=== PATIENT | female | born 1955 | race Caucasian/White ===

== ENCOUNTER 2016-06-03 08:09 | Emergency (ER) | payer MEDICAID ==
[2015-12-18 09:47] VITALS: BMI 31.8
[~2016-06-03 08:09] MED LIST: ADVAIR 250/501 DISK INH; AMBIEN10 MG PO; ATIVAN1 MG PO; BAYER CHEWABLE81 MG PO; CELEXA40 MG PO; CIPRO500 MG PO; CLEOCIN HCL300 MG PO; DOXYCYCLINE HY100 M2 PO; LEVAQUIN500 MG PO; LEVAQUIN750 MG PO; LISINOPRIL PO; LISINOPRIL10 MG PO; LITHIUM CARBON300 MG PO; MEDROL DOSE PACK4 MG PO; MOBIC PO; NORCO 10/325 TA1 TA1 PO; NYSTATIN ORAL SU5 ML PO; ORAPRED ODT10 MG/TAB PO; PERCOCET PO; PLAVIX75 MG PO; PREVACID30 MG PO; SINEQUAN100 MG PO; STERAPRED DS 1210 MG PO; XANAX1 MG PO; [UNRECOGNIZED DRUG - OTHER] PO
== END 2016-06-03 11:10 | disposition home or self-care (01) ==
LOC: D.ER 08:09
DX: J44.1 Chronic obstructive pulmonary disease with (acute) exacerbation (principal); F17.200 Nicotine dependence, unspecified, uncomplicated

== ENCOUNTER 2016-12-14 05:52 | Emergency (ER) | payer MEDICAID ==
[2015-12-18 09:47] VITALS: BMI 31.8
[2016-12-14 07:00] LABS: BASOPHILS 0.7 % (0-2); EOSINOPHILS 2.4 % (0-7); HEMATOCRIT 37.3 % (36.0-48.0); HEMOGLOBIN 12.1 g/dL (12-16); IMMATURE GRANULOCYTES 0.3 % (0-5); LYMPHOCYTES 35.6 % (15-50); MCH 32.5 pg (26.0-34.0); MCHC 32.4 g/dL (31.0-37.0); MCV 100.3 fL (80.0-100.0); MEAN PLATELET VOLUME 10.3 fL (7.4-10.4); MONOCYTES 12.7 % (2-11); NEUTROPHILS 48.3 % (40-80); RBC 3.72 10x6/uL (4.00-5.40); RDW 13.2 % (11.5-14.5); WBC 7.5 10x3/uL (4.8-10.8)
[2016-12-14 07:09] LABS: PLATELET COUNT 184 10x3/uL (130-400)
[2016-12-14 07:18] LABS: ALBUMIN 3.2 g/dL (3.4-5.0); ALKALINE PHOSPHATASE 150 U/L (46-116); ALT (SGPT) 36 U/L (10-68); CALC OSMOLALITY 279 mosm/kg (275-300); CARBON DIOXIDE 25.3 mmol/L (21.0-32.0); CHLORIDE - SERUM 105 mmol/L (98-107); CREATININE - SERUM 0.9 mg/dL (0.6-1.3); GLUCOSE 95 mg/dL (74-106); POTASSIUM - SERUM 4.2 mmol/L (3.5-5.1); PROTEIN - SERUM 7.2 g/dL (6.4-8.2); SODIUM 139 mmol/L (136-145); UREA NITROGEN 19 mg/dL (7-18); eGFR NON AFRICAN AMERICAN 68 mL/min (90-120)
[2016-12-14 07:29] LABS: CHOL - HDL RATIO 5.2 ratio (2.3-4.1); CHOLESTEROL, TOTAL 181 mg/dL (0-200); CKMB 1.8 U/L (0.0-3.6); CREATINE KINASE 156 UL (21-215); HDL CHOLESTEROL 35 mg/dL (32-96); LDL CHOLESTEROL 121 mg/dL (0-100); LDL-HDL RATIO 3.5 ratio (1.5-3.5); TRIGLYCERIDE 126 mg/dL (30-200); TROPONIN-I < 0.017 ng/mL (0.000-0.060)
== END 2016-12-14 07:42 | disposition home or self-care (01) ==
LOC: D.ER 05:52
PROVIDERS: Emergency Medicine
DX: R07.9 Chest pain, unspecified (principal); J44.9 Chronic obstructive pulmonary disease, unspecified; F41.8 Other specified anxiety disorders

== ENCOUNTER 2016-12-22 08:29 | Emergency (ER) | payer MEDICAID ==
[2015-12-18 09:47] VITALS: BMI 31.8
[2016-12-22 09:33] LABS: HEMATOCRIT 38.6 % (36.0-48.0); HEMOGLOBIN 12.8 g/dL (12-16); MCH 32.5 pg (26.0-34.0); MCHC 33.2 g/dL (31.0-37.0); MEAN PLATELET VOLUME 10.1 fL (7.4-10.4); NEUTROPHILS 59.8 % (40-80); PLATELET COUNT 204 10x3/uL (130-400); RBC 3.94 10x6/uL (4.00-5.40); RDW 13.1 % (11.5-14.5); UDS - AMPHET NEGATIVE QUAL (NEGATIVE); UDS - BARB NEGATIVE QUAL (NEGATIVE); UDS - BENZO POSITIVE QUAL (NEGATIVE); UDS - COCAINE NEGATIVE QUAL (NEGATIVE); UDS - METH NEGATIVE QUAL (NEGATIVE); UDS - OPIATE NEGATIVE QUAL (NEGATIVE); UDS - PCP NEGATIVE QUAL (NEGATIVE); UDS - THC NEGATIVE QUAL (NEGATIVE); WBC 7.6 10x3/uL (4.8-10.8)
[2016-12-22 09:47] LABS: APPEARANCE TURBID (CLEAR); BACTERIA MANY /hpf (NONE SEEN); BILIRUBIN NEGATIVE (NEGATIVE); COLOR DK YELLOW (YELLOW); EPITHELIAL CELLS 0-5 /hpf (0-5); GLUCOSE NEGATIVE (NEGATIVE); KETONE NEGATIVE (NEGATIVE); LEUKOCYTE ESTERASE 2+ (NEGATIVE); NITRITE POSITIVE (NEGATIVE); PROTEIN NEGATIVE (NEGATIVE); RED CELLS - URINE 0-5 /hpf (0-5); SPECIFIC GRAVITY 1.015 (1.005-1.020); WHITE CELLS - URINE 25-50 /hpf (0-5)
[2016-12-22 10:04] LABS: ALBUMIN 3.6 g/dL (3.4-5.0); ALKALINE PHOSPHATASE 150 U/L (46-116); ALT (SGPT) 32 U/L (10-68); CALC OSMOLALITY 278 mosm/kg (275-300); CALCIUM 9.1 mg/dL (8.5-10.1); CARBON DIOXIDE 26.6 mmol/L (21.0-32.0); CHLORIDE - SERUM 102 mmol/L (98-107); CREATININE - SERUM 0.7 mg/dL (0.6-1.3); GLUCOSE 88 mg/dL (74-106); POTASSIUM - SERUM 4.5 mmol/L (3.5-5.1); PROTEIN - SERUM 7.3 g/dL (6.4-8.2); SODIUM 141 mmol/L (136-145); UREA NITROGEN 11 mg/dL (7-18); eGFR NON AFRICAN AMERICAN 90 mL/min (90-120)
== END 2016-12-22 11:20 | disposition home or self-care (01) ==
LOC: D.ER 08:29
PROVIDERS: Emergency Medicine
DX: F23 Brief psychotic disorder (principal); F41.9 Anxiety disorder, unspecified; F32.9 Major depressive disorder, single episode, unspecified; M54.5 Low back pain; J44.9 Chronic obstructive pulmonary disease, unspecified; F17.200 Nicotine dependence, unspecified, uncomplicated; R68.83 Chills (without fever); R44.2 Other hallucinations

== ENCOUNTER 2017-11-21 10:17 | Observation (INO) | payer MEDICAID ==
[~2017-11-21] VITALS: Ht 160 cm; Wt 75.0 kg
--- NOTE | ~2017-11-21 | HEMODYNAMI ---
PATIENT:TASHA LAYNE MEDICAL RECORD: [id number] : 57 [facility] [id number] ADMISSION DATE: 11/21/17 Generatedon:11/21/201715:28 Patient name: TASHA LAYNE Patient #: [id number] SSN: : 1955 Date of study: 11/21/2017 Page: Of Hemodynamic Procedure Report Patient Data Patient Demographics Procedure consent was obtained First Name: TASHA Gender: Female Last Name: XI : 1955 [facility] Initial: IAN Age: 62 year(s) Patient #: [id number] Race: Unknown Additional ID: [id number] Contact details [address]: [address] [place] [address] State: [place] City: [place] Zip code: [address] Past Medical History Allergies Allergen Reaction Date Comments Reported Cephalosporins 11/21/2017 Admission Admission Data Admission Date: 11/21/2017 Admission Time: 13:12 Room #: E14 Height (in.): 63 BSA: 1.78 (m2) Height (cm.): 160.02 BMI: 29.23 (kg/m2) Weight (lbs.): 165 Weight (kg.): 74.84 Procedure Procedure Types Cath Procedure Peripheral Cath Diagnostic Procedure Cath Peripheral Abd/Extremity Extremities Right Upper Ext. Arteriogram Procedure Description Procedure Date Procedure Date: 11/21/2017 Procedure Start Time: 15:05 Procedure Staff Name Function Antonio Hogan MD Performing Physician Renata Sanchez RT Depositing Machine Operator Robyn Kennedy RN Nurse Bryant Viera RT Scrub Procedure Data Cath Procedure Fluoroscopy Diagnostic fluoroscopy Total fluoroscopy Time: 0.9 time: 0.9 min min Diagnostic fluoroscopy Total fluoroscopy dose: 219 dose: 219 mGy mGy Contrast Material Contrast Material Type Amount (ml) Isovue 300 55 Diagnostic catheters Device Type Used For End Catheter Placement Merit ULTRA BOLUS FLUSH 5Fr 90CM catheter ([id number]) Procedure Medications Medication Administration Route Dosage Lidocaine 1% added to field 20 Heparin Flush Bag added to field 3 bags (1000units/500ml NS) Hemodynamics Rest BSA: 1.78 (m2) O2 Consumption: Estimated: 172.42 (ml/min) O2 Consumption indexed : Estimated:96.87 (ml/min/m) Heart Rate: 76 (bpm) Snapshots Pre Cath Intra NCS Post Cath Vital Signs Time Heart Resp SPO2 etCO2 NIBP (mmHg) Rhythm Pain Sedation Rate (ipm) (%) (mmHg) Status Level (bpm) 14:52:05 72 7 96 0 Measuring NSR 0 (11) 10(A) , No pain 14:52:34 73 19 96 1.4 135/86(113) NSR 0 (11) 10(A) , No pain 14:56:54 86 37 97 0.7 151/76(112) NSR 0 (11) 10(A) , No pain 15:01:10 69 20 0 129/81(101) NSR 0 (11) 10(A) , No pain 15:05:22 69 13 87 0 125/81(104) NSR 0 (11) 10(A) , No pain 15:10:17 74 11 99 0 147/94(102) NSR 0 (11) 10(A) , No pain 15:15:16 73 18 100 0 Measuring NSR 0 (11) 10(A) , No pain 15:15:32 72 15 0.7 146/86(116) NSR 0 (11) 10(A) , No pain 15:20:31 70 11 0 Measuring NSR 0 (11) 10(A) , No pain 15:20:49 69 14 0 122/85(103) NSR 0 (11) 10(A) , No pain 15:24:55 71 14 99 0.7 139/97(113) NSR 0 (11) 10(A) , No pain Medications Time Medication Route Dose Verified Delivered Reason Notes Effec tiveness by by 14:37:59 Lidocaine 1% added 20ml Antonio Alvarez used for to vial Hogan Hogan procedure field MD INGRAM 14:38:20 Heparin Flush added 3 Antonio Alvarez used for Bag to bags Hogan Hogan procedure (1000units/500ml field MD INGRAM NS) Procedure Log Time Note 14:15:15 Patient Height : 63 inches 14:15:21 Patient Weight : 165 lbs 14:16:02 Use device set IR Diagnostic 14:17:07 DOC .035 wire ([id number]) opened to sterile field. 14:17:08 SHEATH 5FR [place] (TQO572) opened to sterile field. 14:17:09 PERCUTANEOUS ENTRY 19GA needle opened to sterile field. 14:17:10 TUBING Contrast Injection High Pressure ([id number]) opened to sterile field. 14:17:11 Tegaderm 4 x 4 (1626W) opened to sterile field. 14:17:12 Sterile Angiographic Pack opened to sterile field. 14:17:13 Bag Decanter (2001S) opened to sterile field. 14:17:14 ACIST Manifold (23597) opened to sterile field. 14:17:15 ACIST Hand Control (53668) opened to sterile field. 14:17:16 ACIST Syringe (78331) opened to sterile field. 14:18:28 - 14:32:10 Time tracking: Call back (After hours or weekends) 14:32:43 Plan of Care:Hemodynamics will remain stable., Cardiac rhythm will remain stable., Comfort level will be maintained., Respiratory function will remain adequate., Patient/ family verbilizes understanding of procedure., Procedure tolerated without complication., Recovers from procedure without complications.. 14:32:51 Patient received from ED to IR Alert and oriented. Tansferred to table in Supine position. 14:32:55 Signed procedure consent form obtained from patient. 14:33:04 H&P Date Dictated: 11/21/2017 Emergent; H&P N/A. 14:33:07 Pre-procedure instructions explained to patient. 14:33:08 Pre-op teaching completed and patient verbalized understanding. 14:33:10 Family in waiting room. 14:33:18 Patient NPO since Lunch. 14:34:53 Patient allergic to Cephalosporins 14:35:01 Is the patient allergic to Iodine/contrast media? No. 14:35:05 Is patient on blood thinner?Yes 14:35:11 ACC The patient was administered the following blood thiners within the last 24 hours: ACCPlavix 14:35:39 Patient diabetic? No. 14:35:43 - 14:35:44 ----Pre-sedation anethsthesia assessment.---- 14:36:47 Previous problem with sedation/anesthesia? Yes ? 14:36:51 Snore? Yes 14:36:52 Sleep apnea? No 14:36:56 Deviated septum? No 14:36:59 Opens mouth fully? Yes 14:37:02 Sticks out tongue? Yes 14:37:18 Airway obstruction? Yes copd 14:37:22 Dentures? No ? 14:37:25 - 14:37:31 Pre procedure: right dorsailis pedis pulse Doppler 14:37:35 Pre procedure: left dorsailis pedis pulse Doppler 14:37:43 Pre procedure: right posterior tibial pulse Doppler 14:37:47 Pre procedure: left posterior tibial pulse Doppler 14:37:59 Lidocaine 1% 20ml vial added to field was administered by Antonio Hogan MD; used for procedure; 14:38:01 Pre procedure: right radial pulse Doppler 14:38:20 Heparin Flush Bag (1000units/500ml NS) 3 bags added to field was administered by Antonio Hogan MD; used for procedure; 14:38:21 IV patent on arrival in left forearm with D5/.45%NaCl at [facility]. 14:38:28 Right groin area was prepped with chlora-prep and draped in sterile fashion 14:50:15 ECG and BP/O2 sat monitors applied to patient. 14:50:16 Vital chart was started 14:50:18 Baseline sample Acquired. 14:50:26 Baseline sample Acquired. 14:50:29 Full Disclosure recording started 14:50:30 - 15:04:06 Physician arrived 15:05:21 --------ALL STOP TIME OUT------ 15::21 Final Timeout: patient, procedure, and site verified with staff and physician. All members of the team are in agreement. 15:05:32 Procedure started. 15:05:37 Local anesthetic to right femoral artery with Lidocaine 1% by Antonio Hogan MD.INITIAL ACCESS ONLY 15:09:52 A Yoovi ULTRA BOLUS FLUSH 5Fr 90CM catheter ([id number]) was advanced over the wire and used for . 15:20:29 ANGIOSEAL-VIP PLUS 6 FR opened to sterile field. 15:25:06 Procedure ended.(Physican Out) 15:26:17 Fluoroscopy time 00.90 minutes. 15:26:22 Fluoroscopy dose: 219 mGy 15:26:22 Flurop Dose total: 219 15:26:32 Contrast amount:Isovue 300 55ml. 15:26:35 Procedure and supply charges have been captured, reviewed, submitted an d are correct. 15:27:36 Report given to Med/Surg. 15:28:01 Vital chart was stopped Device Usage Item Name Manufacture Quantity Catalog Number Hospital Part Current [facility] Lot# / Charge Number Stock Stock Serial# Code DOC .035 wire [employer] 1 [id number] 5 ([id number]) SHEATH 5FR Terumo 1 [id number] [id number] [id number] [id number] 40 [place] ([id number]) PERCUTANEOUS [employer] 1 [id number] 798901 611581 5 [id number] ENTRY 19GA needle TUBING Merit 1 [id number] 504114 506822 167567 5 Contrast Medical Injection High Pressure ([id number]) Tegaderm 4 x 4 3M 1 1626W [id number] 890447 663247 5 (1626W) Sterile Cardinal 1 [id number] 253743 762129 5 Angiographic Health Pack Bag Decanter Microtek 1 2001S 148183 43088 610888 5 (2001S) Medical Inc. ACIST Manifold Acist 1 46385 342092 916335 867376 5 (97422) Medical Systems Inc ACIST Hand Acist 1 00171 277289 720987 891906 5 Control Medical (87504) Systems Inc ACIST Syringe Acist 1 42833 698678 845819 400549 20 (45804) Medical Systems Inc Merit ULTRA Merit 1 [id number] 971977 894657 5 BOLUS FLUSH Medical 5Fr 90CM catheter ([id number]) ANGIOSEAL-[facility]IP [facility] Simone 1 024409 007496 727152 5 [id number] PLUS 6 FR Signature Audit [place] Stage Time Signature Unsigned Intra-Procedure 11/21/2017 Renata Sanchez 3:27:59 PM RT(R) [id number] [place] [address]
[2017-11-21 11:41] LABS: BASOPHILS 0.6 % (0-2); EOSINOPHILS 2.8 % (0-7); HEMATOCRIT 42.9 % (36.0-48.0); HEMOGLOBIN 14.2 g/dL (12-16); IMMATURE GRANULOCYTES 0.2 % (0-5); LYMPHOCYTES 23.9 % (15-50); MCH 32.6 pg (26.0-34.0); MCHC 33.1 g/dL (31.0-37.0); MCV 98.6 fL (80.0-100.0); MEAN PLATELET VOLUME 11.4 fL (7.4-10.4); MONOCYTES 8.6 % (2-11); NEUTROPHILS 63.9 % (40-80); PLATELET COUNT 177 10x3/uL (130-400); RBC 4.35 10x6/uL (4.00-5.40); RDW 12.6 % (11.5-14.5); WBC 9.9 10x3/uL (4.8-10.8)
[2017-11-21 11:58] LABS: ALBUMIN 3.4 g/dL (3.4-5.0); ALKALINE PHOSPHATASE 128 U/L (46-116); ALT (SGPT) 73 U/L (10-68); BILIRUBIN - TOTAL 0.39 mg/dL (0.2-1.3); CALC OSMOLALITY 279 mosm/kg (275-300); CALCIUM 9.3 mg/dL (8.5-10.1); CARBON DIOXIDE 26.1 mmol/L (21.0-32.0); CHLORIDE - SERUM 106 mmol/L (98-107); CREATININE - SERUM 0.8 mg/dL (0.6-1.3); GLUCOSE 104 mg/dL (74-106); POTASSIUM - SERUM 4.1 mmol/L (3.5-5.1); SODIUM 140 mmol/L (136-145); UREA NITROGEN 15 mg/dL (7-18); eGFR NON AFRICAN AMERICAN 77 mL/min (90-120)
[2017-11-21 13:17] LABS: APTT 29.9 SECONDS (22.8-39.4); INR 1.04 (0.85-1.17); PROTIME 13.2 SECONDS (11.6-15.0)
[2017-11-21 14:15] VITALS: BP 124/93
[2017-11-21] MEDS ORDERED: CELEXA40 MG PO (16:15)
[2017-11-21] MEDS ORDERED: XANAX1 MG PO (16:22)
[2017-11-21 17:26] VITALS: BP 117/74; BMI 29.2
[2017-11-21 18:34] VITALS: Ht 160 cm; Wt 75.0 kg
[2017-11-21 19:06] LABS: HEMATOCRIT 38.8 % (36.0-48.0); HEMOGLOBIN 12.8 g/dL (12-16); RBC 3.88 10x6/uL (4.00-5.40); RDW 12.9 % (11.5-14.5); WBC 10.4 10x3/uL (4.8-10.8)
[2017-11-21 19:22] LABS: APTT 31.1 SECONDS (22.8-39.4); INR 1.05 (0.85-1.17); PROTIME 13.3 SECONDS (11.6-15.0)
[2017-11-21 22:41] VITALS: BP 110/80
[2017-11-22 01:53] VITALS: BP 121/76
[2017-11-22 05:06] LABS: BASOPHILS 0.5 % (0-2); EOSINOPHILS 2.9 % (0-7); HEMATOCRIT 39.9 % (36.0-48.0); HEMOGLOBIN 12.8 g/dL (12-16); IMMATURE GRANULOCYTES 0.2 % (0-5); MCH 32.1 pg (26.0-34.0); MCHC 32.1 g/dL (31.0-37.0); MEAN PLATELET VOLUME 11.3 fL (7.4-10.4); MONOCYTES 8.7 % (2-11); NEUTROPHILS 51.7 % (40-80); PLATELET COUNT 170 10x3/uL (130-400); RBC 3.99 10x6/uL (4.00-5.40); RDW 12.9 % (11.5-14.5); WBC 11.1 10x3/uL (4.8-10.8)
[2017-11-22 05:22] LABS: ANION GAP 11.8 mmol/L (8-16); CALCIUM 8.6 mg/dL (8.5-10.1); CARBON DIOXIDE 24.4 mmol/L (21.0-32.0); CREATININE - SERUM 0.9 mg/dL (0.6-1.3); POTASSIUM - SERUM 4.2 mmol/L (3.5-5.1)
[2017-11-22 06:25] VITALS: BP 147/88
[2017-11-22 09:01] VITALS: BP 144/70
[2017-11-22 13:32] VITALS: BP 155/115
[2017-11-22 18:34] LABS: PLT FUNCT.(P2Y12) PLAVIX 144 PRU (194-418)
[2017-11-22 20:30] VITALS: BP 196/100
[2017-11-23 06:54] LABS: ANION GAP 13.5 mmol/L (8-16); CALCIUM 9.2 mg/dL (8.5-10.1); CARBON DIOXIDE 23.6 mmol/L (21.0-32.0); CREATININE - SERUM 0.9 mg/dL (0.6-1.3); POTASSIUM - SERUM 4.1 mmol/L (3.5-5.1)
[2017-11-23 07:00] LABS: BASOPHILS 0.5 % (0-2); EOSINOPHILS 1.5 % (0-7); HEMATOCRIT 38.6 % (36.0-48.0); HEMOGLOBIN 12.7 g/dL (12-16); IMMATURE GRANULOCYTES 0.2 % (0-5); LYMPHOCYTES 24.1 % (15-50); MCH 32.2 pg (26.0-34.0); MCHC 32.9 g/dL (31.0-37.0); MEAN PLATELET VOLUME 11.5 fL (7.4-10.4); NEUTROPHILS 63.7 % (40-80); RBC 3.95 10x6/uL (4.00-5.40); RDW 12.6 % (11.5-14.5)
[2017-11-23 07:29] LABS: MCV 97.7 fL (80.0-100.0); PLATELET COUNT 227 10x3/uL (130-400); WBC 17.7 10x3/uL (4.8-10.8)
== END 2017-11-23 08:39 | disposition left against medical advice (07) ==
LOC: D.ER 10:17 → D.M2 13:12 → D.EDHOLD 13:12 → OBSVTIME 13:15 → D.M2 16:08
PROVIDERS: Emergency Medicine; Internal Medicine Nephrology
DX: I73.9 Peripheral vascular disease, unspecified (principal); F17.203 Nicotine dependence unspecified, with withdrawal; I10 Essential (primary) hypertension; J44.9 Chronic obstructive pulmonary disease, unspecified; F31.9 Bipolar disorder, unspecified; F41.9 Anxiety disorder, unspecified

== ENCOUNTER 2017-11-29 11:26 | Emergency (ER) | payer MEDICAID ==
[~2017-11-29] VITALS: Ht 160 cm; Wt 72.7 kg
[2017-11-29 11:33] VITALS: Ht 160 cm; Wt 72.7 kg
[2017-11-29 13:11] LABS: ALBUMIN 3.6 g/dL (3.4-5.0); ALKALINE PHOSPHATASE 102 U/L (46-116); ALT (SGPT) 70 U/L (10-68); BILIRUBIN - TOTAL 0.85 mg/dL (0.2-1.3); CALC OSMOLALITY 275 mosm/kg (275-300); CALCIUM 8.7 mg/dL (8.5-10.1); CARBON DIOXIDE 25.9 mmol/L (21.0-32.0); CHLORIDE - SERUM 101 mmol/L (98-107); CREATININE - SERUM 0.9 mg/dL (0.6-1.3); GLUCOSE 113 mg/dL (74-106); POTASSIUM - SERUM 3.8 mmol/L (3.5-5.1); SODIUM 136 mmol/L (136-145); UREA NITROGEN 20 mg/dL (7-18); eGFR NON AFRICAN AMERICAN 67 mL/min (90-120)
[2017-11-29 13:14] LABS: BASOPHILS 0.6 % (0-2); EOSINOPHILS 1.4 % (0-7); HEMATOCRIT 34.5 % (36.0-48.0); HEMOGLOBIN 11.3 g/dL (12-16); IMMATURE GRANULOCYTES 0.2 % (0-5); MCH 32.5 pg (26.0-34.0); MCHC 32.8 g/dL (31.0-37.0); MCV 99.1 fL (80.0-100.0); MEAN PLATELET VOLUME 10.7 fL (7.4-10.4); MONOCYTES 10.5 % (2-11); NEUTROPHILS 70.3 % (40-80); PLATELET COUNT 274 10x3/uL (130-400); RBC 3.48 10x6/uL (4.00-5.40); RDW 13.4 % (11.5-14.5); WBC 16.2 10x3/uL (4.8-10.8)
[2017-11-29 13:30] LABS: CREATINE KINASE 387 UL (21-215); PRO BNP 306 pg/mL (0-125)
[2017-11-29 13:32] LABS: CKMB 3.8 U/L (0.0-3.6)
[2017-11-29 14:42] VITALS: BP 142/87
== END 2017-11-29 14:51 | disposition home or self-care (01) ==
LOC: D.ER 11:26
PROVIDERS: Family Medicine
DX: I70.298 Other atherosclerosis of native arteries of extremities, other extremity (principal); Z98.890 Other specified postprocedural states; I10 Essential (primary) hypertension; J44.9 Chronic obstructive pulmonary disease, unspecified

== ENCOUNTER 2017-12-03 19:53 | Emergency (ER) | payer MEDICAID ==
[~2017-12-03] VITALS: Ht 160 cm; Wt 72.7 kg
[2017-12-03 20:00] VITALS: BP 139/83; Ht 160 cm; Wt 72.7 kg
== END 2017-12-03 22:18 | disposition left against medical advice (07) ==
LOC: D.ER 19:53
DX: M79.641 Pain in right hand (principal)

== ENCOUNTER 2018-05-02 00:10 | Emergency (ER) | payer MEDICAID ==
[~2018-05-02] VITALS: Ht 160 cm; Wt 65.0 kg
[2018-05-02 00:14] VITALS: Ht 160 cm; Wt 65.0 kg
[2018-05-02 02:10] LABS: BASOPHILS 0.7 % (0-2); HEMATOCRIT 36.5 % (36.0-48.0); HEMOGLOBIN 12.2 g/dL (12-16); IMMATURE GRANULOCYTES 0.1 % (0-5); LYMPHOCYTES 32.8 % (15-50); MCH 32.8 pg (26.0-34.0); MCHC 33.4 g/dL (31.0-37.0); MCV 98.1 fL (80.0-100.0); MEAN PLATELET VOLUME 11.1 fL (7.4-10.4); MONOCYTES 12.1 % (2-11); NEUTROPHILS 51.3 % (40-80); RBC 3.72 10x6/uL (4.00-5.40); WBC 9.2 10x3/uL (4.8-10.8)
[2018-05-02 02:12] LABS: PLATELET COUNT 148 10x3/uL (130-400)
[2018-05-02 02:30] LABS: ALBUMIN 3.4 g/dL (3.4-5.0); ALKALINE PHOSPHATASE 129 U/L (46-116); ALT (SGPT) 81 U/L (10-68); BILIRUBIN - TOTAL 1.14 mg/dL (0.2-1.3); CALC OSMOLALITY 280 mosm/kg (275-300); CALCIUM 8.9 mg/dL (8.5-10.1); CARBON DIOXIDE 26.5 mmol/L (21.0-32.0); CHLORIDE - SERUM 104 mmol/L (98-107); CREATININE - SERUM 0.7 mg/dL (0.6-1.3); GLUCOSE 109 mg/dL (74-106); POTASSIUM - SERUM 3.6 mmol/L (3.5-5.1); PROTEIN - SERUM 7.4 g/dL (6.4-8.2); SODIUM 139 mmol/L (136-145); UREA NITROGEN 18 mg/dL (7-18); eGFR NON AFRICAN AMERICAN 90 mL/min (90-120)
[2018-05-02 03:29] LABS: UDS - AMPHET POSITIVE QUAL (NEGATIVE); UDS - BARB NEGATIVE QUAL (NEGATIVE); UDS - BENZO POSITIVE QUAL (NEGATIVE); UDS - COCAINE NEGATIVE QUAL (NEGATIVE); UDS - OPIATE NEGATIVE QUAL (NEGATIVE); UDS - PCP NEGATIVE QUAL (NEGATIVE); UDS - THC NEGATIVE QUAL (NEGATIVE)
[2018-05-02 09:59] VITALS: BP 122/76
== END 2018-05-02 10:00 | disposition home or self-care (01) ==
LOC: D.ER 00:10
PROVIDERS: Family Medicine
DX: S01.01XA Laceration without foreign body of scalp, initial encounter (principal); W18.30XA Fall on same level, unspecified, initial encounter; Y93.89 Activity, other specified; Y92.019 Unspecified place in single-family (private) house as the place of occurrence of the external cause; F15.129 Other stimulant abuse with intoxication, unspecified; F13.129 Sedative, hypnotic or anxiolytic abuse with intoxication, unspecified; Z79.01 Long term (current) use of anticoagulants; Z86.19 Personal history of other infectious and parasitic diseases; J44.9 Chronic obstructive pulmonary disease, unspecified; F17.200 Nicotine dependence, unspecified, uncomplicated